=== PATIENT | male | born 1960 | race American Indian/Alaskan Native ===

== ENCOUNTER 2018-02-13 11:06 | Emergency (ER) | payer OTHER ==
[2018-02-13 11:49] VITALS: BP 138/97
[2018-02-13] MEDS ORDERED: MOTRIN PO ONE (12:15)
--- NOTE | 2018-02-13 12:16 | Emergency Department Report ---
Abscess Boil HPI - HPI Chief Complaint: Skin/Abscess/Foreign Body Stated Complaint: CYST RIGHT SIDE OF HEAD Time Seen by Provider: 02/13/18 12:00 Duration: >1 Week Location: Head History: No Fever, No Pain, No Purulent Drainage (mild yellowish d/c, non purulent), No Numbness, No Foreign Body, No Previous History, No Insect Bite HPI: Patient is a 57-year-old male who presents to ED with a temperature abscess on the right side of his forehead initially began 3 years ago. Patient states a couple of days ago he noticed some draining from the area. Patient denies pain to the area or any injuries or trauma to the head. He denies fever chills nausea vomiting. Home Medications: Previous Rx's Medication Instructions Recorded Last Taken Type HYDROcodone/ACETAMINOPHEN [Garrison 1 each PO Q6HR PRN #20 tablet 12/09/14 Unknown Rx 7.5-325 mg TAB] Metaxalone [Skelaxin] 800 mg PO TID #30 tablet 12/09/14 Unknown Rx Cephalexin [Keflex] 500 mg PO Q12HR #10 cap 02/13/18 Unknown Rx Allergies/Adverse Reactions: Allergies Allergy/AdvReac Type Severity Reaction Status Date / Time No Known Allergies Allergy Unverified 12/09/14 11:24 ED Review of Systems ROS: Stated complaint: CYST RIGHT SIDE OF HEAD Other details as noted in HPI Constitutional: denies: chills, fever Eyes: denies: eye pain, eye discharge, vision change ENT: denies: ear pain, throat pain Respiratory: denies: cough, shortness of breath, wheezing Cardiovascular: denies: chest pain, palpitations Endocrine: no symptoms reported Gastrointestinal: denies: abdominal pain, nausea, diarrhea Genitourinary: denies: urgency, dysuria Musculoskeletal: denies: back pain, joint swelling, arthralgia Skin: denies: rash, lesions Neurological: denies: headache, weakness, paresthesias Psychiatric: denies: anxiety, depression Hematological/Lymphatic: denies: easy bleeding, easy bruising ED Past Medical Hx - Past Medical History Additional medical history: Spinal cord injury 2008 gout - Surgical History Past Surgical History?: Yes Additional Surgical History: C-4 surgery - Social History Smoking Status: Current Some Day Smoker Substance Use Type: Alcohol - Medications Home Medications: Home Medications Medication Instructions Recorded Confirmed Last Taken Type HYDROcodone/ACETAMINOPHEN [Garrison 1 each PO Q6HR PRN #20 tablet 12/09/14 Unknown Rx 7.5-325 mg TAB] Metaxalone [Skelaxin] 800 mg PO TID #30 tablet 12/09/14 Unknown Rx Cephalexin [Keflex] 500 mg PO Q12HR #10 cap 02/13/18 Unknown Rx ED Abscess Boil Physical Exam - Exam General: Vital signs noted. No distress. Alert and acting appropriately. Size: 3 cm Exam: Yes Fluctuance, Yes Normal Circulation, No Tenderness, No Surrounding Cellulites/Erythema, No Lymphangitis, No Crepitation, No Heart Murmur, No Normal Neurologic Exam I & D Note - I & D Note I & D Note: Patient positioned appropriately, 2cc lidocaine without epinephrine was used as a local anesthetic. #11 blade scalpal used for single incision. Sebacious-like discharge expelled, almost fat like. nOn copious discharge. Procedure tolerated without complications. Wound dressed with sterile 4x4 guaze and paper tape. Pt tolerated procedure well. Wound did not need packing due to the fact that abscess was more sebaceous like d/c. ED Course Vital Signs 02/13/18 11:39 Temperature 98.7 F Pulse Rate 82 Respiratory 16 Rate Blood Pressure 138/97 Blood Pressure 138/97 [Right] O2 Sat by Pulse 99 Oximetry Critical care attestation.: If time is entered above; I have spent that time in minutes in the direct care of this critically ill patient, excluding procedure time. ED Medical Decision Making - Medical Decision Making 57-year-old male presents with abscess right forehead ED course: See ID note She received Motrin in the ED Discussed patient to follow-up with primary care physician in 3-5 days. Vital signs are normal patient is in no acute distress. Discussed acute wound care, change dressing daily Discussed to keep wound clean and dry. Patient had no neuro deficit. ED Disposition Clinical Impression: Simple abscess Disposition: DC-01 TO HOME OR SELFCARE Is pt being admited?: No Does the pt Need Aspirin: No Condition: Stable Instructions: Abscess Incision and Drainage (ED), Abscess (ED) Additional Instructions: Make sure to follow up with the primary care physician as discussed. Take all your medications as you've been prescribed. If you have any worsening symptoms or develop new symptoms please return to ED immediately. Prescriptions: Cephalexin [Keflex] 500 mg PO Q12HR #10 cap Referrals: PRIMARY CARE, [Primary Care Provider] - 3-5 Days [facility] [Outside] - 3-5 Days [facility] [Outside] - 3-5 Days Forms: Work/School Release Form(ED) Time of Disposition: 13:54
[2018-02-13] MEDS ORDERED: MOTRIN ONE (12:39)
[2018-02-13] MEDS ORDERED: SILVER NITRATE TP ONE (13:39)
== END 2018-02-13 13:53 | disposition home or self-care (01) ==
LOC: ED 11:06
DX: L02.01 Cutaneous abscess of face (principal); F17.200 Nicotine dependence, unspecified, uncomplicated